=== PATIENT | female | born 1955 | race Caucasian/White ===

== ENCOUNTER → 2023-12-18 11:43 | Outpatient (REF) | payer OTHER, SELFPAY ==
[2023-12-18 12:59] LABS: % Basophils 0.4 % (0-2); % Eosinophils 1.9 % (0-6); % Immature Granulocytes 0.4 % (0-0.5); % Lymphocytes 16.7 % (20.5-51.1); % Monocytes 7.5 % (1.7-9.3); % Neutrophils 73.1 % (42.2-75.2); Absolute Eosinophils 0.2 10^3/uL (0-0.7); Absolute Lymphocytes 1.6 10^3/uL (1.2-3.4); Absolute Monocytes 0.7 10^3/uL (0.1-0.6); Absolute Neutrophils 7.2 10^3/uL (1.4-6.5); Hematocrit 40.8 % (37.0-47.0); Hemoglobin 14.1 g/dL (12.0-16.0); Mean Corp Hgb Conc. 34.6 g/dL (33.0-37.0); Mean Corpuscular Hgb 31.2 pg (27.0-31.0); Mean Corpuscular Volume 90.3 fL (81.0-99.0); Mean Platelet Volume 9.8 fL (7.4-10.4); Nucleated Red Blood Cells % 0 %; Platelet Count 350 10^3/uL (130-400); Red Blood Cell Count 4.52 10^6/uL (4.20-5.40); Red Cell Dist. Width 14.3 % (11.5-14.5); White Blood Cell Count 9.8 10^3/uL (4.8-10.8)
[2023-12-18 13:17] LABS: ALT (SGPT) 16 U/L (0-35); AST (SGOT) 27 U/L (14-36); Albumin 3.7 g/dl (3.5-5.0); Alkaline Phosphatase 114 U/L (38-126); Blood Urea Nitrogen 11 mg/dl (7-17); Calcium 9.3 mg/dl (8.4-10.2); Carbon Dioxide 22 mmol/L (22-30); Chloride 107 mmol/L (98-107); Glucose 108 mg/dl (70-99); Potassium 4.1 mmol/L (3.5-5.1); Sodium 135 mmol/L (135-145); Total Bilirubin 0.6 mg/dl (0.2-1.3); Total Protein 7.2 g/dl (6.3-8.2); eGFR > 60.00
[2023-12-18 13:53] LABS: Erythrocyte Sed Rate 19 mm/hour (0-20)
== END ==
LOC: REG 11:43
PROVIDERS: ATTENDING PHYSICIAN Internal Medicine Rheumatology; FAMILY PHYSICIAN Internal Medicine
DX: M05.79 Rheumatoid arthritis with rheumatoid factor of multiple sites without organ or systems involvement (principal); M15.0 Primary generalized (osteo)arthritis; R53.82 Chronic fatigue, unspecified; Z79.899 Other long term (current) drug therapy
CPT/HCPCS: 36415; 80053; 85025; 85652; 86140

== ENCOUNTER → 2024-03-19 10:01 | Outpatient (REF) | payer OTHER, SELFPAY ==
[2024-03-19 11:04] LABS: % Basophils 0.4 % (0-2); % Eosinophils 2.3 % (0-6); % Immature Granulocytes 0.5 % (0-0.5); % Lymphocytes 18.9 % (20.5-51.1); % Monocytes 7.3 % (1.7-9.3); % Neutrophils 70.6 % (42.2-75.2); Absolute Eosinophils 0.2 10^3/uL (0-0.7); Absolute Immature Granulocytes 0.1 10^3/uL (0-0.05); Absolute Lymphocytes 1.9 10^3/uL (1.2-3.4); Absolute Monocytes 0.7 10^3/uL (0.1-0.6); Absolute Neutrophils 7.1 10^3/uL (1.4-6.5); Hematocrit 42.3 % (37.0-47.0); Hemoglobin 14.3 g/dL (12.0-16.0); Mean Corp Hgb Conc. 33.8 g/dL (33.0-37.0); Mean Corpuscular Hgb 30.6 pg (27.0-31.0); Mean Corpuscular Volume 90.6 fL (81.0-99.0); Mean Platelet Volume 10.7 fL (7.4-10.4); Nucleated Red Blood Cells % 0 %; Platelet Count 284 10^3/uL (130-400); Red Blood Cell Count 4.67 10^6/uL (4.20-5.40); Red Cell Dist. Width 14.4 % (11.5-14.5)
[2024-03-19 11:27] LABS: ALT (SGPT) 21 U/L (0-35); AST (SGOT) 25 U/L (14-36); Albumin 3.8 g/dl (3.5-5.0); Alkaline Phosphatase 111 U/L (38-126); Blood Urea Nitrogen 12 mg/dl (7-17); Calcium 9.3 mg/dl (8.4-10.2); Carbon Dioxide 24 mmol/L (22-30); Chloride 105 mmol/L (98-107); Glucose 107 mg/dl (70-99); Potassium 4.4 mmol/L (3.5-5.1); Sodium 139 mmol/L (135-145); Total Bilirubin 0.7 mg/dl (0.2-1.3); Total Protein 7.2 g/dl (6.3-8.2); eGFR > 60.00
[2024-03-19 11:39] LABS: Erythrocyte Sed Rate 32 mm/hour (0-20)
== END ==
LOC: REG 10:01
PROVIDERS: ATTENDING PHYSICIAN Internal Medicine Rheumatology; FAMILY PHYSICIAN Internal Medicine
DX: M05.79 Rheumatoid arthritis with rheumatoid factor of multiple sites without organ or systems involvement (principal); M15.0 Primary generalized (osteo)arthritis; R53.82 Chronic fatigue, unspecified; Z79.899 Other long term (current) drug therapy
CPT/HCPCS: 36415; 80053; 85025; 85652; 86140

== ENCOUNTER → 2024-07-08 10:37 | Outpatient (REF) | payer OTHER, SELFPAY ==
[2024-07-08 11:52] LABS: % Basophils 0.5 % (0-2); % Eosinophils 2.1 % (0-6); % Immature Granulocytes 0.6 % (0-0.5); % Lymphocytes 19.8 % (20.5-51.1); % Monocytes 9.4 % (1.7-9.3); % Neutrophils 67.6 % (42.2-75.2); Absolute Basophils 0.1 10^3/uL (0-0.2); Absolute Eosinophils 0.2 10^3/uL (0-0.7); Absolute Immature Granulocytes 0.1 10^3/uL (0-0.05); Absolute Monocytes 0.9 10^3/uL (0.1-0.6); Absolute Neutrophils 6.7 10^3/uL (1.4-6.5); Hematocrit 44.4 % (37.0-47.0); Hemoglobin 14.9 g/dL (12.0-16.0); Mean Corp Hgb Conc. 33.6 g/dL (33.0-37.0); Mean Corpuscular Hgb 31.4 pg (27.0-31.0); Mean Corpuscular Volume 93.7 fL (81.0-99.0); Nucleated Red Blood Cells % 0 %; Platelet Count 275 10^3/uL (130-400); Red Blood Cell Count 4.74 10^6/uL (4.20-5.40); Red Cell Dist. Width 14.5 % (11.5-14.5); White Blood Cell Count 9.9 10^3/uL (4.8-10.8)
[2024-07-08 12:07] LABS: Erythrocyte Sed Rate 24 mm/hour (0-20)
[2024-07-08 12:25] LABS: ALT (SGPT) 32 U/L (0-35); AST (SGOT) 23 U/L (14-36); Albumin 3.7 g/dl (3.5-5.0); Alkaline Phosphatase 123 U/L (38-126); Blood Urea Nitrogen 13 mg/dl (7-17); Carbon Dioxide 27 mmol/L (22-30); Chloride 103 mmol/L (98-107); Glucose 124 mg/dl (70-99); Potassium 4.5 mmol/L (3.5-5.1); Sodium 140 mmol/L (135-145); Total Bilirubin 0.8 mg/dl (0.2-1.3); Total Protein 6.8 g/dl (6.3-8.2); eGFR > 60.00
[2024-07-08 12:55] LABS: Hepatitis B Surface Antigen Negative (Negative)
[2024-07-08 12:58] LABS: Hepatitis B Core Ab, IgM Negative (Negative)
[2024-07-08 13:13] LABS: Hepatitis B Core Ab, Total Negative (Negative); Hepatitis B Surface Antibody Negative
[2024-07-08 13:40] LABS: Hepatitis C Antibody Negative (Negative)
[2024-07-10 05:11] LABS: Quantiferon TB Gold Plus Negative (Negative)
[2024-07-11 09:08] LABS: CCP Antibody IgG/IgA 156 Units (0-19)
== END ==
LOC: RAD 10:37
PROVIDERS: ATTENDING PHYSICIAN Physician Assistant
DX: K75.9 Inflammatory liver disease, unspecified (principal); M06.9 Rheumatoid arthritis, unspecified; M79.641 Pain in right hand; R76.9 Abnormal immunological finding in serum, unspecified; Z11.1 Encounter for screening for respiratory tuberculosis
CPT/HCPCS: 36415; 73100; 73120; 80053; 85025; 85652; 86140; 86200; 86430; 86480; 86704; 86705; 86706; 86803; 87340

== ENCOUNTER → 2024-11-30 11:58 | Outpatient (REF) | payer OTHER, SELFPAY ==
[2024-11-30 14:11] LABS: % Basophils 0.3 % (0-2); % Eosinophils 1.1 % (0-6); % Immature Granulocytes 0.5 % (0-0.5); % Lymphocytes 18.1 % (20.5-51.1); % Monocytes 12.2 % (1.7-9.3); % Neutrophils 67.8 % (42.2-75.2); Absolute Eosinophils 0.1 10^3/uL (0-0.7); Absolute Immature Granulocytes 0.1 10^3/uL (0-0.05); Absolute Monocytes 1.4 10^3/uL (0.1-0.6); Absolute Neutrophils 7.5 10^3/uL (1.4-6.5); Hematocrit 42.7 % (37.0-47.0); Hemoglobin 13.6 g/dL (12.0-16.0); Mean Corp Hgb Conc. 31.9 g/dL (33.0-37.0); Mean Corpuscular Volume 94.3 fL (81.0-99.0); Mean Platelet Volume 10.3 fL (7.4-10.4); Nucleated Red Blood Cells % 0 %; Platelet Count 374 10^3/uL (130-400); Red Blood Cell Count 4.53 10^6/uL (4.20-5.40); Red Cell Dist. Width 14.6 % (11.5-14.5); White Blood Cell Count 11.1 10^3/uL (4.8-10.8)
[2024-11-30 14:42] LABS: ALT (SGPT) 17 U/L (0-35); AST (SGOT) 22 U/L (14-36); Albumin 4.1 g/dl (3.5-5.0); Alkaline Phosphatase 105 U/L (38-126); Blood Urea Nitrogen 14 mg/dl (7-17); Carbon Dioxide 27 mmol/L (22-30); Chloride 99 mmol/L (98-107); Glucose 84 mg/dl (70-99); Potassium 5.1 mmol/L (3.5-5.1); Sodium 135 mmol/L (135-145); Total Bilirubin 1.1 mg/dl (0.2-1.3); Total Protein 7.4 g/dl (6.3-8.2); eGFR > 60.00
== END ==
LOC: REG 11:58
PROVIDERS: ATTENDING PHYSICIAN Internal Medicine Rheumatology; FAMILY PHYSICIAN Internal Medicine
DX: M06.9 Rheumatoid arthritis, unspecified (principal)
CPT/HCPCS: 36415; 80053; 85025; 86140

== ENCOUNTER → 2025-04-26 09:30 | Outpatient (REF) | payer OTHER, SELFPAY ==
[2025-04-26 10:51] LABS: Hematocrit 42.5 % (37.0-47.0); Hemoglobin 13.9 g/dL (12.0-16.0); Mean Corp Hgb Conc. 32.7 g/dL (33.0-37.0); Mean Corpuscular Volume 91.8 fL (81.0-99.0); Nucleated Red Blood Cells % 0 %; Platelet Count 372 10^3/uL (130-400); Red Cell Dist. Width 14.6 % (11.5-14.5)
[2025-04-26 11:15] LABS: ALT (SGPT) 18 U/L (0-35); AST (SGOT) 20 U/L (14-36); Albumin 3.7 g/dl (3.5-5.0); Alkaline Phosphatase 121 U/L (38-126); Blood Urea Nitrogen 10 mg/dl (7-17); Calcium 9.2 mg/dl (8.4-10.2); Carbon Dioxide 26 mmol/L (22-30); Chloride 105 mmol/L (98-107); Glucose 141 mg/dl (70-99); Potassium 4.3 mmol/L (3.5-5.1); Sodium 137 mmol/L (135-145); Total Protein 7.6 g/dl (6.3-8.2); eGFR > 60.00
[2025-04-26 13:14] LABS: C-Reactive Protein 56.10 mg/L (0.0-10.00)
== END ==
LOC: REG 09:30
PROVIDERS: ATTENDING PHYSICIAN Internal Medicine Rheumatology; FAMILY PHYSICIAN Internal Medicine
DX: M06.9 Rheumatoid arthritis, unspecified (principal); M79.641 Pain in right hand
CPT/HCPCS: 36415; 80053; 85025; 85652; 86140

== ENCOUNTER → 2025-09-04 13:00 | Outpatient (REF) | payer OTHER, SELFPAY ==
[2025-09-04 15:13] LABS: Hematocrit 33.7 % (37.0-47.0); Hemoglobin 10.3 g/dL (12.0-16.0); Mean Corp Hgb Conc. 30.6 g/dL (33.0-37.0); Mean Corpuscular Volume 90.8 fL (81.0-99.0); Nucleated Red Blood Cells % 0 %; Platelet Count 339 10^3/uL (130-400); Red Cell Dist. Width 15.4 % (11.5-14.5)
[2025-09-04 15:14] LABS: ALT (SGPT) 19 U/L (0-35); AST (SGOT) 26 U/L (14-36); Albumin 3.4 g/dl (3.5-5.0); Alkaline Phosphatase 207 U/L (38-126); Blood Urea Nitrogen 49 mg/dl (7-17); Calcium 8.7 mg/dl (8.4-10.2); Carbon Dioxide 28 mmol/L (22-30); Chloride 102 mmol/L (98-107); Glucose 107 mg/dl (70-99); Potassium 5.3 mmol/L (3.5-5.1); Sodium 136 mmol/L (135-145); Total Protein 7.9 g/dl (6.3-8.2); eGFR 12.29
[2025-09-04 15:20] LABS: C-Reactive Protein 83.40 mg/L (0.0-10.00)
[2025-09-07 01:58] LABS: CCP Antibody IgG/IgA >250 Units (0-19)
== END ==
LOC: REG 13:00
PROVIDERS: ATTENDING PHYSICIAN Internal Medicine Rheumatology; FAMILY PHYSICIAN Internal Medicine
DX: M06.9 Rheumatoid arthritis, unspecified (principal); M79.641 Pain in right hand; M79.642 Pain in left hand
CPT/HCPCS: 36415; 80053; 85025; 85652; 86140; 86200; 86430

== ENCOUNTER 2025-10-03 20:47 | Inpatient (IN) | payer OTHER, SELFPAY ==
[2025-10-03] VITALS (20 sets, daily range): BP systolic 104–221; BP diastolic 57–124
--- NOTE | 2025-10-03 19:15 | ED.GENMED ---
History of Present Illness
General
Chief Complaint: Abnormal Lab Value
Source: patient and significant other
Exam Limitations: none
Time Seen by Provider: 10/03/25 19:02
Nursing documentation reviewed up to this point in time: agreed with
History of Present Illness
History of Present Illness:
70 female outpatient referral for elevated BUN/creatinine white count chronic renal sufficiency not on meds never seen nephrology felt nauseous recently has been coughing a bit, legs feel swollen, had been on methotrexate previously for RA not
recently
Past History
Past History
ED Past Medical History: Other (RA hypertension)
Social History
Tobacco: Non-smoker
Alcohol: None
Drug: None
Personal: Single
Living: with family
Employment: Retired
Review of Systems
Review of Systems
All Other Systems: Not applicable
Constitutional: Reports fatigue
Respiratory: Reports no symptoms
Cardiac: Denies chest pain
ABD/GI: Reports nausea and vomiting
: Denies dysuria or incontinence
Skin: Reports no symptoms
Neurological: Reports weakness
Phy Exam
Physical Exam
Physical Exam:
Physical Exam
General: no apparent distress, not acutely ill
Neck: No jaundice
Heart: s1/s2 regular rate and rhythm, no murmur. equal radial pulses.
Lungs: Crackles
Abdomen: Nontender
Neuro: alert and oriented. no focal neurological deficits
Skin: no rash
Psychiatric: well kept. interactive and cooperative
Extremities: Edema lower EXTR
Course
Orders/Labs/Results
Orders:
Orders
10/03/25 18:40
Electrocardiogram (*1) Urgent
Reason for Study: Tachycardia
10/03/25 18:41
EKG- Treatment ONCE
10/03/25 19:13
CR Chest Portable - 1 View Urgent
Comment:
Reason For Exam: sob
Reason Study Needs to be Portable: Patient Unstable
10/03/25 19:14
CT Abd/pel Without Iv Or Oral Urgent
Comment:
Reason For Exam: christo
Bladder Scan- Treatment ONCE
HydrALAZINE [Apresoline] 5 mg IV NOW STA
10/03/25 19:22
Consult Nephrology [NEPHROLOGY CONSULT] Routine
Consulting Provider: Jed Masters
Was physician already notified: Yes
10/03/25 19:30
Nicardipine 40 mg/200 ml [Cardene] 40 mg in 200 ml IV PER PROTOCOL
Initial dose in mg/hr, then titrate:: 5
Titrate to keep:: SBP 120 - 140 mmHg
Titrate by mg/hr:: 2.5 mg/hr
Frequency of titrations (minutes):: 5-15 minutes
Maximum dose in mg/hr:: 15
Begin to taper infusion when:: Remained at goal for 2hrs
Taper by mg/hr:: 2.5 mg/hr
Frequency of taper (minutes) if patient maintains goal:: every 15-30 minutes
Taper to off?: Yes
If infusion off & no longer maintaining goal:: Contact Provider
10/03/25 20:21
Urinalysis Reflex To Culture Stat
Date Specimen was Collected: 10/03/25
Time Specimen was Collected: 20:19
Urine Microscopic Reflex Cult Stat
Urine Protein/Creat Ratio (Random) [Protein/Creat Ratio (Random)] Stat
Date Specimen was Collected: 10/03/25
Time Specimen was Collected: 20:19
Urine Sodium Stat
Date Specimen was Collected: 10/03/25
Time Specimen was Collected: 20:19
Urine Culture Stat
RAMIN Source: U
Specimen Description:
Date Specimen was Collected: 10/03/25
Time Specimen was Collected: 20:19
Abnormal Lab Results
10/03/25
20:21
Urine Ketones 1+ A
(Negative)
Ur Occult Blood Reflex 3+ A
(Negative)
Leukocyte Esterase Rfl 1+ A
(Negative)
Urine Albumin (Reflex) 2+ A
(Neg - Trace)
Vital Signs
Initial and Last Documented VS:
Initial Vital Signs
Temp Pulse Resp BP Pulse Ox
98.4 F 125 20 221/124 98
10/03/25 18:18 10/03/25 18:18 10/03/25 18:18 10/03/25 18:18 10/03/25 18:18
Last Documented Vital Signs
Temp Pulse Resp BP Pulse Ox
98.4 F 124 29 169/78 99
10/03/25 18:18 10/03/25 20:15 10/03/25 20:15 10/03/25 20:15 10/03/25 19:16
MDM/Problems Addressed
Differential Diagnosis Includes:
CHRISTO hypertensive urgency, obstructive uropathy
MDM/Problems Addressed:
Acute renal failure leukocytosis
Chronic conditions affecting care: HTN
Acute Exacerbation and/or Progression of Chronic Illness: HTN
*Radiology
Radiology exam reviewed: radiology read reviewed
*Pulse Oximetry
SaO2: 99
Oxygen Mode of Delivery: Room air
Patient hypoxic: no
*EKG
Interpreted by ED Provider?: Yes
Interpretation: normal
Comparison EKG: no comparison EKG present
Heart Rate: 78
Rate: normal
Rhythm: sinus
Ischemia: non-specific ST changes
*Virtualization Architect Interpretation
Rate: normal
Interpretation: normal
Heart Rate: 78
Rhythm: sinus
*Critical Care Note
Total Time (30-74mins, 75-104mins- exclusive of procedures): 30
Data Reviewed
Review of Other/Old Records Reveals: Labs
Source: patient
Update Note
Update Note:
7:30 PM labs vitals reviewed with nephrology recommend Cardene, starting with bladder scan and CT without contrast rule out obstruction chest x-ray
8:[address] report noted, message sent to nephrology, hospitalist, IR and urology
ED Attending Note
-
Portions of this chart may have been created with voice recognition software.� Occasional wrong word or��sound alike� substitutions may have occurred due to the inherent limitations of voice recognition software.
Discharge Plan
Departure
Patient Disposition: Admit
Date of Disposition: 10/03/25
Time of Disposition: 19:31
Admit to: ICU
Presentation/result/management discussed w/ accepting MD/DO: Hospitalist
Patient with high blood pressure during this ER visit?: Yes
Condition: Serious
Discharge Problem:
Hypertensive emergency, Acute kidney injury
Prescriptions:
No Action
mupirocin 1 APPLIC ointment
1 applic topical BID Qty: 1 0RF
Patient Comments:
started Thursday , last dose 11/05 0600
multivitamin 1 EACH tablet
1 ea PO DAILY PRN (Reason: when needed)
sennosides [senna] 1 TABLET tablet
2 tab PO BID 0RF
aspirin 325 MG tablet
325 mg PO DAILY Qty: 28 0RF
Rx Instructions:
Take daily x4 weeks for blood clot prevention.
docusate sodium 100 MG capsule
100 mg PO BID 0RF
acetaminophen 500 MG tablet
1,000 mg PO Q6H Qty: 60 0RF
Rx Instructions:
Do not exceed >4000 mg daily.
oxycodone 5 MG tablet
5 mg PO Q4HPRN PRN (Reason: moderate-severe pain) Qty: 30 0RF
Rx Instructions:
1 tab moderate pain or 2 if pain severe
Dx total joint replacement
ongoing therapy
celecoxib 200 MG capsule
200 mg PO DAILY Qty: 30 0RF
Rx Instructions:
Take with food.
Do not take within 2 hours of Aspirin.
famotidine 20 MG tablet
20 mg PO HS Qty: 30 0RF
baclofen 10 MG tablet
10 mg PO BIDPRN PRN (Reason: muscle spasms) Qty: 15 0RF
dyirvnqidoh-T5-Tbpxpadty serr 1 EACH tablet
1 ea PO DAILY Qty: 0 0RF
Rx Instructions:
Resume in 1 week.
Referrals:
Jennifer Mckeon MD [Family Provider, Internal Medicine]
Interventions
Interventions:
*General Assessment Last Done: 10/03/25 18:18
*Neglect/Abuse Screening Last Done: 10/03/25 18:18
*ED COVID-19 Vaccine History Last Done: 10/03/25 19:05
*ED Influenza Vaccine History Last Done: 10/03/25 19:05
[facility] Fall Risk Assessment Tool Last Done: 10/03/25 18:16
Discharge Date and Time
Print Language: INDIAN
[2025-10-03] MEDS: APRESOLINE 5 MG IV (19:19)
--- NOTE | 2025-10-03 19:26 | HPS.HSE ---
Family Physician
-
Family Physician: Jennifer Mckeon
Chief Complaint
-
Abnormal lab values
History of Present Illness
This is a 70-year-old female with past medical history significant for rheumatoid arthritis, close arthritis status post right total knee arthroplasty presents to the emergency department with abnormal labs from outpatient physician.
Patient reports history of rheumatoid arthritis for which she was previously on methotrexate. She states she took methotrexate for about 2 years and stopped approximately 3 months ago. She reports that over the last 2 weeks she has been having
increasing in nausea and intolerance of p.o. She reports that she does spit up strong whitish phlegm due to her nausea. She usually is able to keep most of her food down. She denies having any fevers or chills. She denies any diarrhea. She
denies any abdominal pain. She denies having any flank pain. She denies any urinary symptoms. She denies any changes in her urine output.
She was seen in the emergency department few weeks ago and had a acute rise in creatinine to 3.5 at that time. She was followed up by her PMD.
PMD did some workup which did reveal active inflammatory findings with elevated rheumatoid factor and cyclic Citrulline peptide. In previous years that she has had elevated JAIRON titers.
She was seen by PMD today and had labs which showed her creatinine had increased to 7.5 and a BUN of 88.
On arrival in the emergency department she was hypertensive to 200/93, pulse rate was 112 and oxygen saturation was 99% on room air. ECG shows a sinus tachycardia at rate of 117. Chest x-ray shows small left pleural effusions with adjacent
atelectasis, the cardiac silhouette is slightly enlarged consistent with small pericardial effusion. She has CT of the abdomen pelvis without IV contrast pending.
The rest of her labs showed WBC of 20.5, hemoglobin of 9.7 and a plate count of 408. Electrolytes was stable except for a bicarb of 15. ESR was elevated at 145.
Medical History
Past Medical History
Past Medical History: Reports Other
Additional Past Medical History:
Episodes that conjunctivitis
Right gastritis
Past Surgical History: Reports Orthopedic (Right total knee arthroplasty)
Social History
Tobacco: Non-smoker
Alcohol: None
Drug: None
Family History
Family History: Not pertinent
Allergies / Home Medications
Allergies reflects when Allergies were last updated in [facility].
Home Medications with original date entered in [facility]
Allergy/Medication List:
Allergies
Allergy/AdvReac Type Severity Reaction Status Date / Time
No Known Allergies Allergy Verified 10/03/25 18:22
Home Medications
No Meds [No Current Medications] 10/04/25
Review of Systems
-
Constitutional: Reports No Symptoms
EENT: Reports No Symptoms
Respiratory: Reports No Symptoms
Cardiac: Reports No Symptoms
Abdomen/GI: Reports Nausea
: Reports No Symptoms
Musculoskeletal: Reports No Symptoms
Skin: Reports No Symptoms
Neurological: Reports No Symptoms
Endocrine: Reports No Symptoms
Hematologic/Lymphatic: Reports No Symptoms
Psych: Reports No Symptoms
Physical Exam
Vital Signs
Vital Signs
Temp Pulse Resp BP Pulse Ox
98.4 F 112 27 205/93 99
10/03/25 18:18 10/03/25 18:45 10/03/25 18:45 10/03/25 18:36 10/03/25 19:16
Physical Exam
General: Well Developed, Well Nourished and No Apparent Distress
HEENT: NormoCephalic, Moist mucous membranes and Atraumatic
Respiratory: Clear
Cardiac: S1/S2 and Regular Rhythm; No Murmur or Rub
GI: Soft, Non Tender, Non Distended and Normal Bowel Sounds; No Organomegaly
Rectal: Deferred by Provider
Musculoskeletal: No Clubbing, No Cyanosis, Edema, Left Lower Extremity (Trace ankle) and Edema, Right Lower Extremity (Trace ankle)
Skin: No Rash
Neuro: AO x 3 and Nonfocal/grossly intact
Psych: Calm
Data Reviewed
-
Diagnostic Radiology: Image Personally Visualized and interpreted
CT Scan: Report Reviewed by me
Medical Tests (Nuc Med, Echo, EKG etc): Image Personally Visualized and interpreted
Lab Data: Labs Reviewed by me
Old Records: Reviewed
Impression/Plan
-
IMPRESSION:
70-year-old with history of rheumatoid arthritis who stopped taking methotrexate in May presents to the emergency department with abnormal outpatient labs showing acute renal failure with a creatinine of 7.5. She had a prior creatinine in
August that was 3.5 and had follow-up studies by her PMD at that time which showed elevated inflammatory markers. Rheumatoid arthritis as well as elevated ESR. She presents to the emergency department with nausea and poor p.o. tolerance. Workup
in the emergency department revealed uncontrolled hypertension, volume overload without shortness of breath or hypoxia. ECG was unremarkable. Labs showed a BUN of 83 and a creatinine of 7.5, electrolytes are okay and bicarb is slightly low at 15.
She has a white count of 20.5 and hemoglobin of 9.7 with a plate count of 408. CT reveals CVA bilateral hydronephrosis likely secondary to a soft tissue mass in the region of the lower uterine segment that appears to be directly invading into the
posterior wall of the urinary bladder likely obstruction of both distal ureters at the level of the ureterovesicular junction. Cervical or endometrial carcinoma will be a leading consideration.
PLAN:
Acute renal failure -likely on the basis of bilateral hydronephrosis secondary to soft tissue mass stemming from uterus or cervix concerning for endometrial cancer.
-Admit to ICU for blood pressure control and nicardipine
� N.p.o. for now
� Discussed with nephrology, will need acute decompression.
� Urology consultation
�Percutaneous nephrostomy tube recommended by urology
� IR consultation for PERC neph tube
� Given leukocytosis, obtaining urine studies and culture, blood cultures if febrile
-Will start empiric ceftriaxone for now given the leukocytosis after urine has been collected
Pelvic Mass on non-contrast CT concerning for endometrial/cervical ca
- television technician consult
- TVUS per television technician
DVT prophylaxis�heparin subcu
CODE STATUS�full code
[2025-10-03] MEDS: CARDENE 200 IV (19:40)
[2025-10-03 20:27] LABS: Urine Character Clear (Clear)
[2025-10-03 20:32] LABS: Urine Squamous Cell 16-20 /LPF (Few)
[2025-10-03 21:29] LABS: COVID-19 Antigen Negative (Negative)
[2025-10-03 22:31] LABS: Glucose - Point of Care 156 mg/dl (70-99)
--- NOTE | 2025-10-03 22:47 | PTCARENOTE ---
pt arrived from ED, staff settled pt, family at bedside, denies chest pain and SOB at this time, cardene gtt infusing per orders, call hyde in reach, report given to RN at this time
[2025-10-03] MEDS: TYLENOL 650 MG PO (23:13)
[2025-10-03] MEDS: SODIUM BICARBONATE 650 MG PO (23:13)
[2025-10-03] MEDS: HEPARIN 5000 UNITS SC (23:14)
[2025-10-03] MEDS: ROCEPHIN 1000 MG IV (23:58)
[2025-10-03] MEDS: STERILE WATER FOR INJECTION 10 ML IV (23:58)
[2025-10-04] VITALS (28 sets, daily range): BP systolic 90–168; BP diastolic 61–96; BMI 24.5
--- NOTE | 2025-10-04 00:11 | PTCARENOTE ---
admitted to icu [id number]- htn on Cardene gtt- gtt being tapered down. bp w/in parameters afebrile sinus 90's - voided urine-ax3- c/o rt upper chest pain that has been intermittent for 10 days- ekg done provider notified and read ekg. many questions
about plan of care all questions answered.
--- NOTE | 2025-10-04 00:46 | PTCARENOTE ---
toney gtt off- pt npo per orders
[2025-10-04 02:13] LABS: Hematocrit 26.0 % (37.0-47.0); Hemoglobin 8.7 g/dL (12.0-16.0); Mean Corp Hgb Conc. 33.5 g/dL (33.0-37.0); Mean Corpuscular Volume 85.2 fL (81.0-99.0); Platelet Count 342 10^3/uL (130-400); Red Cell Dist. Width 15.2 % (11.5-14.5)
[2025-10-04 02:22] LABS: INR 1.66; PT 19.8 Sec (11.4-14.6)
[2025-10-04 02:23] LABS: APTT 36.1 Sec (23.4-35.0)
[2025-10-04 02:33] LABS: Troponin I 0.031 ng/ml
[2025-10-04 02:48] LABS: D-Dimer 4.04 ug/mlFEU (0.00-0.50)
--- NOTE | 2025-10-04 02:50 | PTCARENOTE ---
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 she states that rubbing it helps- heating pad given with excellent relief- case discussed with photo printer= am labs drawn. pt remains on room air and bp
wnl off Cardene gtt. remains npo for am procedure
[2025-10-04 02:56] LABS: Blood Urea Nitrogen 89 mg/dl (7-17); Calcium 8.8 mg/dl (8.4-10.2); Carbon Dioxide 15 mmol/L (22-30); Chloride 107 mmol/L (98-107); Estimated Creatinine Clearance 7 ml/min; Glucose 108 mg/dl (70-99); Iron 37 ug/dl (37-170); Magnesium 1.6 mg/dl (1.6-2.3); Potassium 4.5 mmol/L (3.5-5.1); Sodium 135 mmol/L (135-145); Total Iron Binding Capacity 137 ug/dl (265-497); eGFR 6.11
[2025-10-04 03:12] LABS: Vitamin B12 617 pg/ml (239-931)
--- NOTE | 2025-10-04 03:15 | W.PN.UPDATE ---
Update Note
Progress Note Update
Patient complaining of�right-side�chest pain.�EKG showing no signs of ischemia. Labs sent, results�Troponin�is negative,�D Dimer�elevated�at�4.04.�Clinically: Blood pressure�is�stable.�Respiratory rate within normal limits on room air. The nurse
gave�the patient�a warm�compress,�and she�stated�that her right sided chest pain has improved.�
[2025-10-04] MEDS: TYLENOL 650 MG PO ×3 (06:17→21:19)
--- NOTE | 2025-10-04 07:10 | PTCARENOTE ---
Very pleasant. Holding warm compress to her midsternal section. C/O discomfort with coughing, repositioning, deep breathing. RA pulse ox laying semiflat 92% poor inspiratory effort. Breath sounds dim posteriorly. +2 L/E edema L>R. Good peripheral
pulses. +BSX4, reports fair appetite with resolution of nausea. Right ac protective catheter flushed and patent. She was informed of the plan of care regarding interventional radiology for the insertion of bilateral nephrostomy tubes. We reviewed
post procedural care. She reported she already brushed her teeth this morning. Safe environment maintained.
[2025-10-04] MEDS: HEPARIN 5000 UNITS SC ×3 (07:55→23:12)
[2025-10-04] MEDS: SODIUM BICARBONATE 650 MG PO ×3 (07:55→21:19)
--- NOTE | 2025-10-04 08:04 | W.PN.HOSP.TC ---
Today's Communication/Plan
-
Status post bilateral nephrostomy tube
Okay to downgrade to telemetry if blood pressure remains stable
Renal diet
INTERIOR DESIGNER consulted
Assessment / Plan
Assessment / Plan
Impression:
This is a 70-year-old female with a past medical history of rheumatoid arthritis and osteoarthritis status post right total knee arthroplasty who presented to the emergency department after abnormal outpatient labs. She reports a history of
rheumatoid arthritis previously managed with methotrexate for about two years, which she discontinued approximately three months ago. Over the past two weeks, she has experienced worsening nausea and poor oral intake, occasionally spitting up thick
whitish phlegm but generally able to keep most food down. She denies fever, chills, diarrhea, abdominal pain, flank pain, urinary symptoms, or changes in urine output. She was seen in the ED a few weeks ago for an acute rise in creatinine to 3.5 and
subsequently followed up with her primary physician, who noted elevated inflammatory markers, rheumatoid factor, cyclic citrulline peptide, and historically elevated JAIRON titers. Today, outpatient labs revealed a creatinine of 7.5 and BUN of 88,
prompting ED referral. On arrival, she was hypertensive to 200/93 with a pulse of 112 and oxygen saturation of 99% on room air. ECG showed sinus tachycardia at 117 bpm. Chest X-ray demonstrated a small left pleural effusion with adjacent atelectasis
and a mildly enlarged cardiac silhouette suggestive of a small pericardial effusion. CT abdomen/pelvis without IV contrast is pending. Additional labs revealed WBC 20.5, hemoglobin 9.7, platelets 408, stable electrolytes except for bicarbonate of
15, and an ESR of 145.
Admitted initially to the ICU, for nicardipine drip, IR consult for percutaneous nephrostomy tube, CHIEF WELLNESS OFFICER consulted for pelvis mass.
IR status post nephrostomy tube
Assessment/plan:
Acute Renal Failure
Likely secondary to bilateral hydronephrosis caused by soft tissue mass originating from uterus or cervix, concerning for endometrial cancer.
70-year-old with history of rheumatoid arthritis (off methotrexate since May) presented with abnormal outpatient labs: creatinine 7.5 (prior 3.5 in August), BUN 83, bicarb 15. Electrolytes otherwise stable.
Clinical presentation: nausea, poor oral intake, uncontrolled hypertension, volume overload without hypoxia. ECG unremarkable.
Labs: WBC 20.5, Hgb 9.7, Plt 408.
CT: Bilateral hydronephrosis likely due to soft tissue mass in lower uterine segment invading posterior bladder wall, obstructing distal ureters at ureterovesicular junction. Leading consideration: cervical or endometrial carcinoma.
Plan:
patient Admitted to ICU for BP control; started on nicardipine
Kept NPO for procedures and will start renal diet
Urology/nephrology consulted.
IR consulted S/P Percutaneous nephrostomy tube.
Leukocytosis, urine and blood cultures pending, continue Rocephin
Hypertensive urgency
Patient admitted to the ICU and started in Cardene drip.
Blood pressure improved
Downgrade to telemetry
Sepsis with acute organ dysfunction secondary to UTI.
Organ dysfunction in form of acute renal failure/coagulopathy.
Continue Rocephin, pending urine and blood cultures
Pelvic Mass (non-contrast CT concerning for endometrial/cervical cancer)
Gynecology consult
Transvaginal ultrasound pending
Chest pain.
Possible musculoskeletal.
Chest x-ray negative.
Negative troponin.
Relieved with warm compress.
Negative EKG for acute ischemic changes
Normocytic anemia.
Continue to monitor hemoglobin
Iron level 37, total iron-binding capacity 137, iron saturation 27
Vitamin B12 level 617
CODE STATUS: Full code
DVT prophylaxis: Heparin
Diet: NPO then renal
Disposition: Status post bilateral nephrostomy tube
Okay to downgrade to telemetry if blood pressure remains stable
Renal diet
INTERIOR DESIGNER consult
Total time spent on today's encounter was 74 minutes which included time spent in counseling the patient/family regarding diagnosis and treatment plan as listed above, goals of care, and symptom management. Case was discussed with nursing staff,
specialists, and care coordinators/case management. All labs and imaging personally reviewed by . Remainder the time spent in detailed review of previous records, lab data, imaging, and other medical provider documentation.
Part of this note was created using voice recognition system. Occasional wrong word or �sound alike� substitutions may have inadvertently occurred due to the inherent limitations of voice recognition software. If noted kindly bring it to my
attention for correction.
Anticipated Discharge: > 48 hours
Subjective/Interval History
-
Date of Service: October 04, 2025
Patient seen and examined at bedside, patient complaining of right lower sided muscular chest pain which improves with warm compress.
Objective Data
-
Labs:
Laboratory Results
10/04/25 10/04/25
01:44 01:45
WBC 15.7 H
Hgb 8.7 L
Hct 26.0 L
Plt Count 342
PT 19.8 H
INR 1.66
APTT 36.1 H
Sodium 135
Potassium 4.5
Chloride 107
Carbon Dioxide 15 L
BUN 89 H
Creatinine 6.8 H*
Glucose 108 H
Calcium 8.8
Vital Signs:
Vital Signs
Temp Pulse Resp BP Pulse Ox
98.0 F 98 38 138/71 93
10/04/25 03:09 10/04/25 06:00 10/04/25 06:00 10/04/25 06:00 10/04/25 06:00
I&O
10/03/25 10/04/25 10/05/25
06:59 06:59 06:59
Intake Total 120 / 120
Output Total 800 / 800
Balance -680 / -680
Physical Exam
-
General: Well Developed, Well Nourished, No Apparent Distress and Comfortable
HEENT: Normocephalic, Atraumatic, Moist Mucous Membranes, No Ptosis, PERRLA and Nose Appears Normal
Respiratory: Clear to Auscultation and Non Labored Respirations
Cardiac: Regular Rhythm, S1/S2 and Other (Tender right lower rib cage)
Breast: Deferred by me
GI: Soft, Nontender, Nondistended and Normal Bowel Sounds
Genito-urinary: No Costovertebral Tender
Musculoskeletal: No Clubbing, No Cyanosis and No Edema
Skin: Warm
Neuro: Awake, Alert, Oriented, AO x 3 and No Motor Deficits
Psych: Calm
Data Reviewed
-
Diagnostic Radiology: Image personally visualized and interpreted and Report Reviewed by me
CT Scan: Image personally visualized and interpreted and Report Reviewed by me
Ultrasound: Image personally visualized and interpreted and Report Reviewed by me
MRI: Image personally visualized and interpreted and Report Reviewed by me
Medical Tests (Nuc Med, Echo etc): Image personally visualized and interpreted and Report Reviewed by me
Labs: Labs Reviewed by me
Old Records: Reviewed
--- NOTE | 2025-10-04 10:08 | W.PN.URO.CBU ---
Today's Communication / Plan
-
irad f0r tubes
Assessment / Plan
-
bilateralurteral obstruction christo due to pelvic mass Suggest bilateral percutaneuous tubes then eval of pelvic mass after renal obstruction dissipates
Diagnosis
-
Date of Service: October 04, 2025
-
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
Post Op Day:
Subjective
-
tired
Objective
-
Vital Signs
Temp Pulse Resp BP Pulse Ox
98.0 F 92 26 143/67 93
10/04/25 03:09 10/04/25 09:00 10/04/25 09:00 10/04/25 09:00 10/04/25 09:00
Intake and Output
10/03/25 10/04/25 10/05/25
06:59 06:59 06:59
Intake Total 120 / 120 120 / 120
Output Total 800 / 800 250 / 250
Balance -680 / -680 -130 / -130
Intake:
Oral fluids 120 / 120 120 / 120
Output:
Urine, Voided 800 / 800 250 / 250
Laboratory Results
10/04/25 01:45
10/04/25 01:44
Review of Systems
-
: No Symptoms
Physical Exam
-
General - well developed, well nourished, no acute distress
Chest - clear bilaterally
Abdomen - soft, non-tender, positive bowel sounds, no CVAT, no incisional pain or distention
Genitalia - normal
Rectal - normal
Skin - warm & dry with no rash
Neuro - AOx3, no motor deficits
Extremities - no clubbing, no cyanosis, no edema
Counseling
-
irad
Care Review
Data Reviewed
Discussed with: Hospitalist and KONSTANTIN
CT Scan: Image Pers Reviewed
--- NOTE | 2025-10-04 10:10 | PTCARENOTE ---
Pt transported to [facility] via stretcher & transport monitored. She had to lift her left leg up in order to get OOB. Her gait was steady using her straight cane. While transferring to the stretcher she was dribbling urine. She had no control. She was
provided a partial CHG bath and new non-slip socks provided. Handed off to Lachelle in [facility]. Ticket to ride given to Lachelle in [facility].
--- NOTE | 2025-10-04 12:25 | PTCARENOTE ---
Received pt from ultrasound & [facility] via stretcher. She is awake and alert. C/O thirst. Mild sternal pain associated with deep breathing and coughing. Her significant other is at the bedside asking multiple questions. I informed him that we were still
collecting information regarding the mass in her pelvic region and these are not questions that I can answer. Yesenia Hunt was notified that the family would like to speak with him at his earliest convenience.
--- NOTE | 2025-10-04 12:38 | CM ---
I.A: By KEITH Simmons. Patient was at a test.
I.A: Patient lives with Sig Other in a Condo with [address]. DME: cane, No VN/PT, No STR, No Outpatient.
PCP: Dr. Jennifer Mckeon
Pharm: [facility]
Patient has transport when ready. PLAN: Anticipate Home No Needs, will watch.
[2025-10-04 13:36] LABS: Urine Character Cloudy (Clear)
[2025-10-04 13:44] LABS: Urine Red Blood Cell >100 /HPF (0-2); Urine Squamous Cell 0-2 /LPF (Few)
[2025-10-04 14:11] LABS: Rheumatoid Agglutinin Positive (<10 IU)
[2025-10-04 14:13] LABS: Rheumatoid Agg. Semi-quant 2048 IU
[2025-10-04 15:02] LABS: Blood Urea Nitrogen 82 mg/dl (7-17); Calcium 8.9 mg/dl (8.4-10.2); Carbon Dioxide 15 mmol/L (22-30); Chloride 108 mmol/L (98-107); Estimated Creatinine Clearance 8 ml/min; Glucose 94 mg/dl (70-99); Potassium 4.5 mmol/L (3.5-5.1); Sodium 137 mmol/L (135-145); eGFR 6.70
--- NOTE | 2025-10-04 15:06 | W.CON.NEPH ---
Consultation
-
Date/Time Consultation Requested: 10/03/251921
Date/Time Consultation Performed: 10/04/25 1430
Requesting Provider: Terence Amin
Performing Provider: Yael Galvez
Reason for Consultation: NINO
Medical History
-
Chief Complaint: abnormal labs
History of Present Illness:
70-year-old female with past medical history significant for rheumatoid arthritis, osteo arthritis status post right total knee arthroplasty presents to the emergency department with abnormal labs from outpatient physician.
Patient reports history of rheumatoid arthritis for which she was previously on methotrexate. She states she took methotrexate for about 2 years and stopped approximately 3 months ago. She reports that over the last 2 weeks she has been having
increasing in nausea and intolerance of p.o. She denies having any fevers or chills. She denies any diarrhea. She denies any abdominal pain. She denies having any flank pain. no dysuria however noticed frequency of urination. No hematuria
and denies any changes in her urine output.
She was seen in the emergency department few weeks ago and had a acute rise in creatinine to 3.5 at that time, also running increased blood pressures. She was followed up by her PMD whom she saw yesterday and labs noted with a creatinine of 7.5
and BUN 88 hence was recommended come to the hospital.
On arrival in the emergency department she was hypertensive to 200/93, pulse rate was 112, Chest x-ray shows small left pleural effusions with adjacent atelectasis, the cardiac silhouette is slightly enlarged consistent with small pericardial
effusion. She has CT of the abdomen pelvis without IV contrast show soft tissue mass in the region of lower uterine segment/ cervix that appears directly invading into posterior wall of the urinary bladder likely obstructing both distal ureter at
the UV junction. cervical or endometrial carcinoma his possible consideration. moderate to severe bilateral hydroureteronephrosis.
she saw Urology today and underwent bilateral percutaneous nephrostomy tube placement by interventional radiology.
labs repeated this afternoon shows improving creatinine at 6.3, bicarb of 15.
she feels well probably still mild uupper abdomen discomfort due to nausea. her blood pressures have improved but remains elevated.
nephrology was asked to evaluate NINO.
Past Medical History
Episodes that conjunctivitis
Right gastritis
Osteoarthritis
Past Surgical History: Other (Right total knee arthroplasty)
Social History
Tobacco: Non-Smoker
Alcohol: None
Drug: None
Living: With Family
Family History
no kidney disease
Family History: Not Pertinent
Allergies / Home Medications
Allergy/AdvReac Type Severity Reaction Status Date / Time
No Known Allergies Allergy Verified 10/03/25 18:22
�Medication �Instructions �Recorded �Confirmed �Type
No Meds [No Current Medications] 10/04/25 10/04/25 History
Review of Systems
-
All other systems: Negative unless noted
Physical Exam
Vital Signs
Vital Signs
Temp Pulse Resp BP Pulse Ox
97.9 F 97 31 150/81 97
10/04/25 13:08 10/04/25 14:00 10/04/25 14:00 10/04/25 14:00 10/04/25 14:00
Lab Results
WBC 15.7 10^3/uL (4.8-10.8) H 10/04/25 01:45
RBC 3.05 10^6/uL (4.20-5.40) L 10/04/25 01:45
Hgb 8.7 g/dL (12.0-16.0) L 10/04/25 01:45
Hct 26.0 % (37.0-47.0) L 10/04/25 01:45
Plt Count 342 10^3/uL (130-400) 10/04/25 01:45
Sodium 137 mmol/L (135-145) 10/04/25 13:34
Potassium 4.5 mmol/L (3.5-5.1) 10/04/25 13:34
Chloride 108 mmol/L (98-107) H 10/04/25 13:34
Carbon Dioxide 15 mmol/L (22-30) L 10/04/25 13:34
BUN 82 mg/dl (7-17) H 10/04/25 13:34
Creatinine 6.3 mg/dL (0.6-1.0) H* 10/04/25 13:34
eGFR 6.70 10/04/25 13:34
Glucose 94 mg/dl (70-99) 10/04/25 13:34
Calcium 8.9 mg/dl (8.4-10.2) 10/04/25 13:34
Ohk-Y-Ydrgbmmjmgd Pept 7390 pg/ml 10/04/25 01:45
Physical Exam
General: Awake, Alert, Oriented, AOx3, No Distress and Nontoxic
HEENT: EOMI, Anicteric, Conjunctivae Clear, Ear/Nose Intact, Facial Symmetry and No JVD
Respiratory: Clear, Normal Excursion and Nonlabored Respirations
Cardiac: S1/S2 and Regular Rate/Rhythm
Breast: Deferred by me
Abdomen: Soft, Nontender and Nondistended
Genito-urinary: Bloody Urine
Musculoskeletal: No Cyanosis and No Edema
Skin: No Rash
Neuro: Nonfocal/Grossly Intact
Psych: Mood/afflect pleasant, Insight/judgement good and Appropriate
Data Reviewed
-
Radiology: Report Reviewed by me
Labs: Labs Reviewed by me, Discussed with Physician, Discussed with Patient and Discussed with Family
Assessment/Plan
-
IMP:
Acute Renal Failure
bilateral hydronephrosis caused by soft tissue mass originating from uterus or cervix, concerning for endometrial cancer.
s/p bilt PCN 10/04
Leukocytosis
Hypertensive urgency
mild gap metabolic acidosis
Sepsis with acute organ dysfunction secondary to UTI.
Pelvic Mass (non-contrast CT concerning for endometrial/cervical cancer)
Chest pain.
Normocytic anemia
arthritis
PLan:
A/w NINO and found to have bilat hydro with pelvic mass suspect cervial or endometrial cancer
cr improving to 6.3, s/p bilat PCN today
will trial IVF with bocarb for met acidosis
ok to cont po bicarb meantime too
BPs are labile, monitor
follow h/h
expect to see more improvement of cr however not sure if will return baseline 0.6
await traveling auditor input
follow h/h
on abx for suspected UTI, pending cx
d/w primary
d/w pt and family
--- NOTE | 2025-10-04 15:51 | PTCARENOTE ---
Report called to KATELYN Harrison. Patient transferred to room 430 via WC. All belongings brought with pt. at bedside, updated.
[2025-10-04] MEDS: SODIUM BICARBONATE 1075 MEQ IV (17:05)
--- NOTE | 2025-10-04 18:28 | CON.MD ---
Consultation - Medical
-
70 yo female with PMH rheumatoid arthritis and osteoarthritis presented to ER with persistent nausea/poor PO intake and found to have cervical/uterine mass on CT during workup as well as obstructing hydronephrosis. Had percurtaneous
bilateral nephrostomy tubes placed today by IRad. System Administration Advisor consult requested due to pelvic mass.
Pt reports had episode fo vaginal spotting a few months ago, not heavy. Has not seen DEPUTY DIRECTOR doctor nor had a pap smear in many years. Denies any significant upholstery department supervisor hx.
PMH: rheumatoid arthritis, osteoarthritis
PSH: right knee replacement
NKDA
Meds:recently stopped methotrexate a few wks ago. Denies other medications.
SocHx: single, Negative Tobacco, ETOH, recreational drug use
FamHx:mother from colon cancer age 68. Father in his 90s.Denies family hx of upholstery department supervisor cancers.
ROS: denies CP, SOB, fever, chills, abdominal pain, back pain, dizziness/lightheadedness. + vaginal spotting + nausea + decreased appetite
PE:
General: well-appearing female, no acute distress
Cor: regular rate
Pulm: no increased work of breathing
Abd: soft, NDNT no guarding, rebound, rigidity
Vulva: no gross lesions
Speculum exam: cervix with visible irregular tumor/mass, palpable friable and bled lightly after collecting pap.
Barrel type cervix, bulky, approx 5 cm, with no free space between parametrium and pelvic wall. Firm mass felt in all fornices.
Uterus approx 7-8cm size,
No adnexal fullness appreciated.
Rectal digital exam: no rectal mass palpated. Firm mass felt on posterior cervix/uterus on rectal exam.
Extremities: no calf pain or tenderness.
Imaging:
Impression:
1. Cervical mass visible on exam. Suspected cervical malignancy. Pap collected.
2. Imaging demonstrating solid mass arising from anterior lower uterine segment, suspicious for neoplasm. Uterine and cervical malignancies in differential dx.
3. Postmenopausal bleeding and thickened endometrial lining on TVUS 6.5mm.
4. bilateral hydronephrosis felt likely related to soft tissue mass in lower uterine segment invading posterior bladder wall, obstructing distal ureters at UVJ.
-S/P bilateral nephrostomy tubes.
6. Acute renal failure secondary to ureteral obstruction
-creatinine improving
7 Hypertension on admit -s/p nicardipine drip.
PLAN:
Discussed imaging and exam findings and concern that there is cervical malignancy. Not optimal for bedside biopsy at this time but pap was collected.
She will need to have followup with upholstery department supervisor oncologist for additional evaluation and management. Pt and partner prefer to avoid going into the city. They are agreeable to going to [facility]. I discussed that there may be
recommendation for transfer vs outpatient follow up depending on her other medical issues and severity. I did speak with Dr. Donnell Kim (System Administration Advisor Onc [place]) and reviewed hx and findings. If patient can be stabilized and able to go home in next
few days, can have outpt followup. If felt she needs to in hospital for several days, she can be transferred to their care. I reviewed findings and also discussed her case with Dr. Ernestina Patterson, hospitalist who is the attending physician. The
patient's partner did not want her to be transferred today. I have not been back up to speak to patient or partner regarding discussion with upholstery department supervisor onc due to me having labor patient close to delivering now.
Gynecology Oncology office # [phone].
Time spent including chart, record review, face to face time counseling/exam and documentation on day of visit plus discussion of care with Primary service and upholstery department supervisor oncology 75 minutes.
Consultation
-
Date/Time Consultation Requested: 10/04/25 07:00
Date/Time Consultation Performed: 10/04/25 6:00pm
Requesting Provider: Dr. Patterson
Performing Provider: Genia Downey DO
Reason for Consultation: cervical /uterine mass
--- NOTE | 2025-10-04 20:41 | W.PN.UPDATE ---
Update Note
Progress Note Update
I spoke with Barbara and reviewed my conversation with spanish literature professor onc that outpatient follow up is reasonable if going home soon, otherwise transfer is also an option if anticipating longer hospital stay for other medical issues.
[2025-10-04] MEDS: STERILE WATER FOR INJECTION 10 ML IV (23:12)
[2025-10-04] MEDS: ROCEPHIN 1000 MG IV (23:12)
[2025-10-05 03:05] VITALS: BP 149/88
--- NOTE | 2025-10-05 06:41 | PTCARENOTE ---
Pt had 1 episode of 12 beat VT. Pt was alert and oriented w/o complaint. OIL SPREADER OPERATOR alerted. EKG taken. No change to plan of care. Will continue to monitor.
[2025-10-05 07:12] LABS: Hematocrit 26.9 % (37.0-47.0); Hemoglobin 9.0 g/dL (12.0-16.0); Mean Corp Hgb Conc. 33.5 g/dL (33.0-37.0); Mean Corpuscular Volume 86.5 fL (81.0-99.0); Platelet Count 384 10^3/uL (130-400); Red Cell Dist. Width 15.7 % (11.5-14.5)
[2025-10-05 07:20] VITALS: BP 170/80
[2025-10-05 07:55] LABS: Blood Urea Nitrogen 67 mg/dl (7-17); Calcium 8.1 mg/dl (8.4-10.2); Carbon Dioxide 19 mmol/L (22-30); Chloride 108 mmol/L (98-107); Estimated Creatinine Clearance 12 ml/min; Glucose 112 mg/dl (70-99); Magnesium 1.3 mg/dl (1.6-2.3); Potassium 3.8 mmol/L (3.5-5.1); Sodium 138 mmol/L (135-145); eGFR 10.59
[2025-10-05] MEDS: SODIUM BICARBONATE 650 MG PO ×3 (08:19→21:15)
[2025-10-05] MEDS: HEPARIN 5000 UNITS SC ×3 (08:20→23:09)
[2025-10-05] MEDS: TOPROL XL 25 MG PO (10:48)
[2025-10-05] MEDS: TYLENOL 650 MG PO (10:48)
[2025-10-05] MEDS: MAGNESIUM SULFATE 50 IV (10:49)
[2025-10-05 11:00] VITALS: BP 170/86
--- NOTE | 2025-10-05 13:30 | W.PN.HOSP.TC ---
Today's Communication/Plan
-
Status post bilateral nephrostomy tube
Start Toprol-XL
Eventually transferred to [facility] once accepted by gynecology/oncology
Assessment / Plan
Assessment / Plan
Impression:
This is a 70-year-old female with a past medical history of rheumatoid arthritis and osteoarthritis status post right total knee arthroplasty who presented to the emergency department after abnormal outpatient labs. She reports a history of
rheumatoid arthritis previously managed with methotrexate for about two years, which she discontinued approximately three months ago. Over the past two weeks, she has experienced worsening nausea and poor oral intake, occasionally spitting up thick
whitish phlegm but generally able to keep most food down. She denies fever, chills, diarrhea, abdominal pain, flank pain, urinary symptoms, or changes in urine output. She was seen in the ED a few weeks ago for an acute rise in creatinine to 3.5 and
subsequently followed up with her primary physician, who noted elevated inflammatory markers, rheumatoid factor, cyclic citrulline peptide, and historically elevated JAIRON titers. Today, outpatient labs revealed a creatinine of 7.5 and BUN of 88,
prompting ED referral. On arrival, she was hypertensive to 200/93 with a pulse of 112 and oxygen saturation of 99% on room air. ECG showed sinus tachycardia at 117 bpm. Chest X-ray demonstrated a small left pleural effusion with adjacent atelectasis
and a mildly enlarged cardiac silhouette suggestive of a small pericardial effusion. CT abdomen/pelvis without IV contrast is pending. Additional labs revealed WBC 20.5, hemoglobin 9.7, platelets 408, stable electrolytes except for bicarbonate of
15, and an ESR of 145.
Admitted initially to the ICU, for nicardipine drip, IR consult for percutaneous nephrostomy tube, ACCOUNT MANAGER RELIEF consulted for pelvis mass.
IR status post nephrostomy tube
Assessment/plan:
Acute Renal Failure
Likely secondary to bilateral hydronephrosis caused by soft tissue mass originating from uterus or cervix, concerning for endometrial cancer.
70-year-old with history of rheumatoid arthritis (off methotrexate since May) presented with abnormal outpatient labs: creatinine 7.5 (prior 3.5 in August), BUN 83, bicarb 15. Electrolytes otherwise stable.
Clinical presentation: nausea, poor oral intake, uncontrolled hypertension, volume overload without hypoxia. ECG unremarkable.
Labs: WBC 20.5, Hgb 9.7, Plt 408.
CT: Bilateral hydronephrosis likely due to soft tissue mass in lower uterine segment invading posterior bladder wall, obstructing distal ureters at ureterovesicular junction. Leading consideration: cervical or endometrial carcinoma.
Plan:
patient Admitted to ICU for BP control; started on nicardipine
Kept NPO for procedures and will start renal diet
Urology/nephrology consulted.
IR consulted S/P Percutaneous nephrostomy tube.
Leukocytosis, urine and blood cultures pending, continue Rocephin
Hypertensive urgency
Patient admitted to the ICU and started in Cardene drip.
Blood pressure improved
Downgrade to telemetry
Started Toprol-XL
Nonsustained V. tach.
Keep potassium above 4 and magnesium of 2
Cardiology consulted.
Started on low-dose Toprol XL
Sepsis with acute organ dysfunction secondary to UTI.
Organ dysfunction in form of acute renal failure/coagulopathy.
Continue Rocephin, pending urine and blood cultures
Pelvic Mass (non-contrast CT concerning for endometrial/cervical cancer)
Gynecology consulted
Transvaginal ultrasound shows Solid heterogeneous mass arising from the anterior lower uterine segment measures 3.1 x 3.5 x 3.2 cm, suspicious for endometrial neoplasm.
Cartilage recommending gynecology/oncology consult which is available at [facility].
Discussed with patient and significant other and they are agreeable for transfer to [facility] once bed available.
Chest pain.
Possible musculoskeletal.
Chest x-ray negative.
Negative troponin.
Relieved with warm compress.
Negative EKG for acute ischemic changes
Normocytic anemia.
Continue to monitor hemoglobin
Iron level 37, total iron-binding capacity 137, iron saturation 27
Vitamin B12 level 617
CODE STATUS: Full code
DVT prophylaxis: Heparin
Diet: Renal diet
Communication: Discussed multiple times with significant other Tony Huizar at bedside and on the phone.
Disposition: Status post bilateral nephrostomy tube
Start Toprol-XL
Eventually transferred to [facility] once accepted by gynecology/oncology
Total time spent on today's encounter was 55 minutes which included time spent in counseling the patient/family regarding diagnosis and treatment plan as listed above, goals of care, and symptom management. Case was discussed with nursing staff,
specialists, and care coordinators/case management. All labs and imaging personally reviewed by me. Remainder the time spent in detailed review of previous records, lab data, imaging, and other medical provider documentation.
Part of this note was created using voice recognition system. Occasional wrong word or �sound alike� substitutions may have inadvertently occurred due to the inherent limitations of voice recognition software. If noted kindly bring it to my
attention for correction.
Anticipated Discharge: > 48 hours
Subjective/Interval History
-
Date of Service: October 05, 2025
Patient seen and examined at bedside, improved right lower chest pain had nonsustained V. tach overnight, cardiology consulted..
Objective Data
-
Labs:
Laboratory Results
10/05/25
06:39
WBC 16.7 H
Hgb 9.0 L
Hct 26.9 L
Plt Count 384
Sodium 138
Potassium 3.8
Chloride 108 H
Carbon Dioxide 19 L
BUN 67 H
Creatinine 4.3 H*
Glucose 112 H
Calcium 8.1 L
Vital Signs:
Vital Signs
Temp Pulse Resp BP Pulse Ox
98.5 F 103 18 170/86 97
10/05/25 11:00 10/05/25 11:00 10/05/25 11:00 10/05/25 11:00 10/05/25 11:00
I&O
10/04/25 10/05/25 10/06/25
06:59 06:59 06:59
Intake Total 120 / 120 510 / 510 480 / 480
Output Total 800 / 800 1325 / 1325 500 / 500
Balance -680 / -680 -815 / -815 -20 / -20
Physical Exam
-
General: Well Developed, Well Nourished, No Apparent Distress and Comfortable
HEENT: Normocephalic, Atraumatic, Moist Mucous Membranes, No Ptosis, PERRLA and Nose Appears Normal
Respiratory: Clear to Auscultation and Non Labored Respirations
Cardiac: Regular Rhythm, S1/S2 and Other (Tender right lower rib cage)
Breast: Deferred by me
GI: Soft, Nontender, Nondistended and Normal Bowel Sounds
Genito-urinary: No Costovertebral Tender
Musculoskeletal: No Clubbing, No Cyanosis and No Edema
Skin: Warm
Neuro: Awake, Alert, Oriented, AO x 3 and No Motor Deficits
Psych: Calm
--- NOTE | 2025-10-05 13:40 | W.PN.NEPH.PH ---
Today's Communication / Plan
-
AM labs
Assessment/Plan
-
IMP:
Acute Renal Failure
bilateral hydronephrosis caused by soft tissue mass originating from uterus or cervix, concerning for endometrial cancer.
s/p bilt PCN 10/04
Leukocytosis
Hypertensive urgency
mild gap metabolic acidosis
Sepsis with acute organ dysfunction secondary to UTI.
Pelvic Mass (non-contrast CT concerning for endometrial/cervical cancer)
Chest pain.
Normocytic anemia
arthritis
PLan:
A/w NINO and found to have bilat hydro with pelvic mass suspect cervial or endometrial cancer
s/p bilat PCN with good output
P.o. bicarb
Creatinine better
AM labs
-
-
Date of Service: October 05, 2025
CC / HPI / ROS
-
Chief Complaint:
Acute kidney
History of Present Illness:
NINO secondary to obstructive uropathy status post stent
Review of Systems:
No chest pain or shortness of breath
Labs
-
Labs:
WBC 16.7 10^3/uL (4.8-10.8) H 10/05/25 06:39
RBC 3.11 10^6/uL (4.20-5.40) L 10/05/25 06:39
Hgb 9.0 g/dL (12.0-16.0) L 10/05/25 06:39
Hct 26.9 % (37.0-47.0) L 10/05/25 06:39
Plt Count 384 10^3/uL (130-400) 10/05/25 06:39
eGFR 10.59 10/05/25 06:39
Phosphorus 4.6 mg/dl (2.5-4.5) H 10/05/25 06:39
Lat-X-Anufffzgpbo Pept 7390 pg/ml 10/04/25 01:45
Physical Exam
-
Vital Signs:
Vital Signs
Temp Pulse Resp BP Pulse Ox
98.5 F 103 18 170/86 97
10/05/25 11:00 10/05/25 11:00 10/05/25 11:00 10/05/25 11:00 10/05/25 11:00
Respiratory:: Bilateral: CTA
Lung Excursion:: Normal
Abdomen:: Soft
Bowel Sounds:: Normal
Extremity Edema:: None: Bilateral:
[2025-10-05 15:20] VITALS: BP 146/77
[2025-10-05 17:24] LABS: Blood Urea Nitrogen 60 mg/dl (7-17); Calcium 8.1 mg/dl (8.4-10.2); Carbon Dioxide 21 mmol/L (22-30); Chloride 104 mmol/L (98-107); Estimated Creatinine Clearance 15 ml/min; Glucose 138 mg/dl (70-99); Magnesium 1.9 mg/dl (1.6-2.3); Potassium 3.4 mmol/L (3.5-5.1); Sodium 134 mmol/L (135-145); eGFR 14.04
[2025-10-05 19:45] VITALS: BP 151/77
[2025-10-05] MEDS: ROCEPHIN 1000 MG IV (23:15)
[2025-10-05] MEDS: STERILE WATER FOR INJECTION 10 ML IV (23:15)
[2025-10-05 23:54] VITALS: BP 169/86
[2025-10-06 03:09] VITALS: BP 171/83
[2025-10-06 04:12] VITALS: BP 165/81
[2025-10-06 07:40] VITALS: BP 157/85
[2025-10-06] MEDS: HEPARIN 5000 UNITS SC ×2 (08:02→15:37)
[2025-10-06] MEDS: TOPROL XL 25 MG PO (08:04)
[2025-10-06] MEDS: SODIUM BICARBONATE 650 MG PO ×2 (08:04→15:37)
[2025-10-06] MEDS: TYLENOL 650 MG PO (08:30)
--- NOTE | 2025-10-06 08:54 | CON.CAR ---
Addendum entered and electronically signed by Robin Broderick MD 10/06/25 12:03:
I reviewed and agree with the note by FAZAL Orantes and it accurately reflects our care.
I saw and evaluated the patient, and I provided the substantive portion of the medical decision making. My assessment and plan is below:
70-year-old female with history of rheumatoid arthritis who presented with nausea and poor p.o. intake found to have creatinine 7.5 on outpatient labs due to bilateral hydronephrosis and a pelvic mass. She is now status post bilateral nephrostomy
tubes. Cardiology is consulted for NSVT. She reports that she and she has been here she has been having occasional chest 'spasms' which she thinks is due to coughing. Symptoms are overall improving. She denies palpitations, shortness of breath,
lightheadedness, or dizziness.
Physical exam: RRR, no murmurs, clear lungs, no lower extremity edema
Labs notable for creatinine 6.8 -> 2.7, magnesium 1.3 -> 1.9 -> 1.5
ECG: Sinus tachycardia, nonspecific ST�T wave changes
NSVT: Suspect due to electrolyte derangements in the setting of hypomagnesemia. Agree with magnesium repletion and would plan to discharge her on p.o. magnesium supplementation. We will check an echocardiogram to rule out structural heart disease.
She has already been started on metoprolol XL 25 mg daily which I agree with.
Hypertension: Required nicardipine drip on admission. Suspect undiagnosed hypertension. We will start amlodipine 5 mg daily in addition to metoprolol as above.
If her echocardiogram is unremarkable, cardiology will sign off. We are available for any further questions or concerns.
Original Note:
Consultation
Consultation Request
Date/Time Consultation Requested: 10/06/25 1040
Date/Time Consultation Performed: 10/06/25 0900
Requesting Provider: Dr. Patterson
Performing Provider: Mary DIEHL for Dr. Broderick
Reason for Consultation: NSVT
Medical History
-
Chief Complaint: abnormal labs
History of Present Illness:
70 y/o female with hx RA who has been having poor PO intake and nausea. She saw her PCP on 10/03/25 and due to abnormal lab values, HTN, and tachycardia, she was sent to ER. Acute renal failure was noted with creatinine 7.5. She was seen to have b/l
hydronephrosis related to pelvic mass, which is being investigated. Nephrostomy tubes placed. NINO improving. We are consulted for NSVT on environmental monitoring technician. Asymptomatic. Mag 1.3 and K+ 3.4. Given magnesium replacement and labs this AM pending. She is
having atypical chest discomfort, which is worse with coughing and sounds musculoskeletal. Troponin was unremarkable. EKG looks stable from previous on my review. She is in no distress at the time of my assessment. WBC elevated and patient being
treated for UTI with ABX. Also noted to have severe HTN on arrival, briefly requiring IV medications for management.
Past Medical History
Past Medical History: Other (as above)
Past Surgical History: Orthopedic
Social History
Tobacco: Non-Smoker
Family History
Family History: CAD (dad [place] age 90)
Allergies / Home Medications
Allergy/AdvReac Type Severity Reaction Status Date / Time
No Known Allergies Allergy Verified 10/03/25 18:22
�Medication �Instructions �Recorded �Confirmed �Type
No Meds [No Current Medications] 10/04/25 10/04/25 History
Review of Systems
-
History Source: Patient
All other systems: Negative unless noted
Respiratory: Cough
Abdomen/GI: Nausea and Other (poor PO intake)
Physical Exam
Vital Signs
Temp Pulse Resp BP Pulse Ox
98.7 F 89 20 157/85 96
10/06/25 03:09 10/06/25 08:04 10/06/25 03:09 10/06/25 08:04 10/06/25 03:09
Lab Results
Troponin I 0.031 ng/ml 10/04/25 01:45
Mns-U-Xutzgozxsgg Pept 7390 pg/ml 10/04/25 01:45
Physical Exam
General: Well Developed, Well Nourished and No Apparent Distress
HEENT: Normocephalic and Anicteric
Respiratory: Clear and Non Labored Respirations
Cardiac: Regular Rhythm
Musculoskeletal: No Edema
Skin: Warm and Dry
Neuro: AO x 3
Psych: Calm
Impression / Plan
-
Acute renal failure: improving
-b/l hydronephrosis caused by pelvic mass (being looked into by patent law specialist- poss transfer to [facility] per chart)
-b/l nephrostomy tubes placed
-nephro on the case
Severe HTN:
-improved
-noted on arrival and required Cardene temporarily
-still moderately elevated, denies any history of HTN, but looks like BP's generally elevated at OP PCP visits as well
-started on BB as below, but will likely need further antihypertensive medications
UTI, leukocytosis:
-on IV abx
NSVT:
-tele reviewed: 12-beat run, and two 4-beat runs. No symptoms. In setting of electrolyte abnormalities. Mag 1.3 -replaced. K+ 3.4 yesterday and pending this AM. Replace as indicated. Follow tele. Obtain echo. BB started. Denies any history of
syncope.
Chest discomfort: atypical
-worse with coughing, sounds musculoskeletal
-trop and EKG unremarkable
-checking echo
Elevated d-dimer (4.04):
-work-up and management per primary team
-denies any SOB
Anemia:
-per primary
RA: chronic
Data Reviewed
-
EKG: Tracing Personally Visualized and interpreted (SR with short OR 100 BPM- similar to previous EKG's overall)
Radiology: Report Reviewed by me (CXR 10/03/25: Small left pleural effusion with adjacent atelectasis. No pneumothorax. The cardiac silhouette is slightly enlarged. Chronic degenerative changes of the spine.)
CT Scan: Report Reviewed by me (Soft tissue mass in the region of the lower uterine segment/cervix that appears to directly invade into the posterior wall of the urinary bladder and likely obstructs both distal ureters at the level of the
ureterovesicular junctions.. see full report for more)
Medical Tests (Nuc Med, Echo etc): Other (echo ordered and pending)
Labs: Labs Reviewed by me
[2025-10-06 09:17] LABS: Hematocrit 28.3 % (37.0-47.0); Hemoglobin 9.2 g/dL (12.0-16.0); Mean Corp Hgb Conc. 32.5 g/dL (33.0-37.0); Mean Corpuscular Volume 87.1 fL (81.0-99.0); Platelet Count 336 10^3/uL (130-400); Red Cell Dist. Width 15.6 % (11.5-14.5)
[2025-10-06 09:37] LABS: Blood Urea Nitrogen 51 mg/dl (7-17); Calcium 8.0 mg/dl (8.4-10.2); Carbon Dioxide 23 mmol/L (22-30); Chloride 104 mmol/L (98-107); Estimated Creatinine Clearance 18 ml/min; Glucose 100 mg/dl (70-99); Magnesium 1.5 mg/dl (1.6-2.3); Potassium 3.4 mmol/L (3.5-5.1); Sodium 135 mmol/L (135-145); eGFR 18.52
[2025-10-06] MEDS: KCL 40 MEQ PO ×2 (10:10→13:58)
[2025-10-06] MEDS: MAGNESIUM SULFATE 100 IV (10:11)
[2025-10-06] MEDS: NORVASC 5 MG PO (11:43)
[2025-10-06 11:50] VITALS: BP 156/70
--- NOTE | 2025-10-06 13:29 | W.PN.NEPH.PH ---
Today's Communication / Plan
-
a.m. labs
Assessment/Plan
-
IMP:
Acute Renal Failure
bilateral hydronephrosis caused by soft tissue mass originating from uterus or cervix, concerning for endometrial cancer.
s/p bilt PCN 10/04
Leukocytosis
Hypertensive urgency
mild gap metabolic acidosis
Sepsis with acute organ dysfunction secondary to UTI.
Pelvic Mass (non-contrast CT concerning for endometrial/cervical cancer)
Chest pain.
Normocytic anemia
arthritis
PLan:
A/w NINO and found to have bilat hydro with pelvic mass suspect cervial or endometrial cancer
s/p bilat PCN with good output
P.o. bicarb
Creatinine better
AM labs
-
-
Date of Service: October 06, 2025
CC / HPI / ROS
-
Chief Complaint:
Acute kidney
History of Present Illness:
NINO secondary to obstructive uropathy status post stent
Review of Systems:
No chest pain or shortness of breath
Labs
-
Labs:
WBC 13.5 10^3/uL (4.8-10.8) H 10/06/25 08:04
RBC 3.25 10^6/uL (4.20-5.40) L 10/06/25 08:04
Hgb 9.2 g/dL (12.0-16.0) L 10/06/25 08:04
Hct 28.3 % (37.0-47.0) L 10/06/25 08:04
Plt Count 336 10^3/uL (130-400) 10/06/25 08:04
Sodium 135 mmol/L (135-145) 10/06/25 08:04
Potassium 3.4 mmol/L (3.5-5.1) L 10/06/25 08:04
Chloride 104 mmol/L (98-107) 10/06/25 08:04
Carbon Dioxide 23 mmol/L (22-30) 10/06/25 08:04
BUN 51 mg/dl (7-17) H 10/06/25 08:04
Creatinine 2.7 mg/dL (0.6-1.0) H 10/06/25 08:04
eGFR 18.52 10/06/25 08:04
Glucose 100 mg/dl (70-99) H 10/06/25 08:04
Calcium 8.0 mg/dl (8.4-10.2) L 10/06/25 08:04
Phosphorus 3.3 mg/dl (2.5-4.5) 10/06/25 08:04
Guj-F-Alzdwmpawjn Pept 7390 pg/ml 10/04/25 01:45
Physical Exam
-
Vital Signs:
Vital Signs
Temp Pulse Resp BP Pulse Ox
97.7 F 78 18 156/70 97
10/06/25 11:50 10/06/25 11:50 10/06/25 11:50 10/06/25 11:50 10/06/25 11:50
Respiratory:: Bilateral: CTA
Lung Excursion:: Normal
Abdomen:: Soft
Bowel Sounds:: Normal
Extremity Edema:: None: Bilateral:
--- NOTE | 2025-10-06 13:38 | CM ---
Addendum entered by Shilpa Darby 10/06/25 15:21:
KEITH called Jason ([phone] option 2) to notify of 5-530pm ambulance continuous pickling line pickler helper time.
Original Note:
Patient is for transfer to [facility] today.
[facility]
[address] [place] [address]
room 44 bed 1
Tel# for Report- [phone]
CM to call [phone] option 2 with pu time
Plan: transfer to [facility]
[2025-10-06 13:49] LABS: ANA, IgG Reflex to HEp-2 Detected (None Detected)
--- NOTE | 2025-10-06 14:07 | W.PN.HOSP.TC ---
Today's Communication/Plan
-
Transfer to [facility] under service of Dr. Donnell Kim.
Assessment / Plan
Assessment / Plan
Impression:
This is a 70-year-old female with a past medical history of rheumatoid arthritis and osteoarthritis status post right total knee arthroplasty who presented to the emergency department after abnormal outpatient labs. She reports a history of
rheumatoid arthritis previously managed with methotrexate for about two years, which she discontinued approximately three months ago. Over the past two weeks, she has experienced worsening nausea and poor oral intake, occasionally spitting up thick
whitish phlegm but generally able to keep most food down. She denies fever, chills, diarrhea, abdominal pain, flank pain, urinary symptoms, or changes in urine output. She was seen in the ED a few weeks ago for an acute rise in creatinine to 3.5 and
subsequently followed up with her primary physician, who noted elevated inflammatory markers, rheumatoid factor, cyclic citrulline peptide, and historically elevated JAIRON titers. Today, outpatient labs revealed a creatinine of 7.5 and BUN of 88,
prompting ED referral. On arrival, she was hypertensive to 200/93 with a pulse of 112 and oxygen saturation of 99% on room air. ECG showed sinus tachycardia at 117 bpm. Chest X-ray demonstrated a small left pleural effusion with adjacent atelectasis
and a mildly enlarged cardiac silhouette suggestive of a small pericardial effusion. CT abdomen/pelvis without IV contrast is pending. Additional labs revealed WBC 20.5, hemoglobin 9.7, platelets 408, stable electrolytes except for bicarbonate of
15, and an ESR of 145.
Admitted initially to the ICU, for nicardipine drip, IR consult for percutaneous nephrostomy tube, TAP OUT OPERATOR consulted for pelvis mass.
IR status post nephrostomy tube.
Seen by gynecology recommended transfer to [facility] to be seen by COMPRESSOR MECHANIC/oncology
Patient accepted by Dr. Donnell Kim at [facility].
Assessment/plan:
Acute Renal Failure
Likely secondary to bilateral hydronephrosis caused by soft tissue mass originating from uterus or cervix, concerning for endometrial cancer.
70-year-old with history of rheumatoid arthritis (off methotrexate since May) presented with abnormal outpatient labs: creatinine 7.5 (prior 3.5 in August), BUN 83, bicarb 15. Electrolytes otherwise stable.
Clinical presentation: nausea, poor oral intake, uncontrolled hypertension, volume overload without hypoxia. ECG unremarkable.
Labs: WBC 20.5, Hgb 9.7, Plt 408.
CT: Bilateral hydronephrosis likely due to soft tissue mass in lower uterine segment invading posterior bladder wall, obstructing distal ureters at ureterovesicular junction. Leading consideration: cervical or endometrial carcinoma.
Plan:
patient Admitted to ICU for BP control; started on nicardipine
Kept NPO for procedures and will start renal diet
Urology/nephrology consulted.
IR consulted S/P Percutaneous nephrostomy tube.
Leukocytosis, urine and blood cultures negative so far, discontinue Rocephin.
Hypertensive urgency
Patient admitted to the ICU and started in Cardene drip.
Blood pressure improved
Downgrade to telemetry
Started Toprol-XL
Nonsustained V. tach.
Keep potassium above 4 and magnesium of 2
Cardiology consulted.
Started on low-dose Toprol XL
Echo pending
Sepsis with acute organ dysfunction secondary to UTI.
Organ dysfunction in form of acute renal failure/coagulopathy.
Continue Rocephin, pending urine and blood cultures
Pelvic Mass (non-contrast CT concerning for endometrial/cervical cancer)
Gynecology consulted
Transvaginal ultrasound shows Solid heterogeneous mass arising from the anterior lower uterine segment measures 3.1 x 3.5 x 3.2 cm, suspicious for endometrial neoplasm.
COMPRESSOR MECHANIC recommending gynecology/oncology consult which is available at [facility].
Discussed with patient and significant other and they are agreeable for transfer to [facility] once bed available.
Patient was accepted by. Dr. Donnell Kim
Chest pain.
Possible musculoskeletal.
Chest x-ray negative.
Negative troponin.
Relieved with warm compress.
Negative EKG for acute ischemic changes
Normocytic anemia.
Continue to monitor hemoglobin
Iron level 37, total iron-binding capacity 137, iron saturation 27
Vitamin B12 level 617
CODE STATUS: Full code
DVT prophylaxis: Heparin
Diet: Renal diet
Communication: Discussed multiple times with significant other Tony Huizar at bedside and on the phone.
Disposition: Transfer to [facility] under service of Dr. Donnell Kim.
Total time spent on today's encounter was 55 minutes which included time spent in counseling the patient/family regarding diagnosis and treatment plan as listed above, goals of care, and symptom management. Case was discussed with nursing staff,
specialists, and care coordinators/case management. All labs and imaging personally reviewed by me. Remainder the time spent in detailed review of previous records, lab data, imaging, and other medical provider documentation.
Part of this note was created using voice recognition system. Occasional wrong word or �sound alike� substitutions may have inadvertently occurred due to the inherent limitations of voice recognition software. If noted kindly bring it to my
attention for correction.
Anticipated Discharge: Today
Subjective/Interval History
-
Date of Service: October 06, 2025
Patient seen and examined at bedside, improved musculoskeletal chest pain or shortness of breath, no abdominal pain, no nausea, no vomiting, no diarrhea or constipation.
Objective Data
-
Labs:
Laboratory Results
10/06/25
08:04
WBC 13.5 H
Hgb 9.2 L
Hct 28.3 L
Plt Count 336
Sodium 135
Potassium 3.4 L
Chloride 104
Carbon Dioxide 23
BUN 51 H
Creatinine 2.7 H
Glucose 100 H
Calcium 8.0 L
Vital Signs:
Vital Signs
Temp Pulse Resp BP Pulse Ox
97.7 F 78 18 156/70 97
10/06/25 11:50 10/06/25 11:50 10/06/25 11:50 10/06/25 11:50 10/06/25 11:50
I&O
10/05/25 10/06/25 10/07/25
06:59 06:59 06:59
Intake Total 510 / 510 1080 / 1080
Output Total 1325 / 1325 3540 / 3540 775 / 775
Balance -815 / -815 -2460 / -2460 -775 / -775
Physical Exam
-
General: Well Developed, Well Nourished, No Apparent Distress and Comfortable
HEENT: Normocephalic, Atraumatic, Moist Mucous Membranes, No Ptosis, PERRLA and Nose Appears Normal
Respiratory: Clear to Auscultation and Non Labored Respirations
Cardiac: Regular Rhythm, S1/S2 and Other (Tender right lower rib cage)
Breast: Deferred by me
GI: Soft, Nontender, Nondistended and Normal Bowel Sounds
Genito-urinary: No Costovertebral Tender
Musculoskeletal: No Clubbing, No Cyanosis and No Edema
Skin: Warm
Neuro: Awake, Alert, Oriented, AO x 3 and No Motor Deficits
Psych: Calm
[2025-10-06 14:41] VITALS: BP 147/75
--- NOTE | 2025-10-06 15:22 | W.DCSUMMARY ---
Discharge Summary
Discharge Data
Date of Admission: 10/03/25
Date of Discharge: 10/06/25
Total time spent discharging patient (in min): 40
-
Pending Results: No
Hospital Course
Hospital course
This is a 70-year-old female with a past medical history of rheumatoid arthritis and osteoarthritis status post right total knee arthroplasty who presented to the emergency department after abnormal outpatient labs. She reports a history of
rheumatoid arthritis previously managed with methotrexate for about two years, which she discontinued approximately three months ago. Over the past two weeks, she has experienced worsening nausea and poor oral intake, occasionally spitting up thick
whitish phlegm but generally able to keep most food down. She denies fever, chills, diarrhea, abdominal pain, flank pain, urinary symptoms, or changes in urine output. She was seen in the ED a few weeks ago for an acute rise in creatinine to 3.5 and
subsequently followed up with her primary physician, who noted elevated inflammatory markers, rheumatoid factor, cyclic citrulline peptide, and historically elevated JAIRON titers. Today, outpatient labs revealed a creatinine of 7.5 and BUN of 88,
prompting ED referral. On arrival, she was hypertensive to 200/93 with a pulse of 112 and oxygen saturation of 99% on room air. ECG showed sinus tachycardia at 117 bpm. Chest X-ray demonstrated a small left pleural effusion with adjacent atelectasis
and a mildly enlarged cardiac silhouette suggestive of a small pericardial effusion. CT abdomen/pelvis without IV contrast is pending. Additional labs revealed WBC 20.5, hemoglobin 9.7, platelets 408, stable electrolytes except for bicarbonate of
15, and an ESR of 145.
Admitted initially to the ICU, for nicardipine drip, IR consult for percutaneous nephrostomy tube, GASOLINE PUMP INSTALLER consulted for pelvis mass.
IR status post nephrostomy tube.
Seen by gynecology recommended transfer to [facility] to be seen by YARD OPERATOR/oncology
Patient accepted by Dr. Donnell Kim at [facility].
During hospitalization patient was treated from the following
Acute Renal Failure
Likely secondary to bilateral hydronephrosis caused by soft tissue mass originating from uterus or cervix, concerning for endometrial cancer.
70-year-old with history of rheumatoid arthritis (off methotrexate since May) presented with abnormal outpatient labs: creatinine 7.5 (prior 3.5 in August), BUN 83, bicarb 15. Electrolytes otherwise stable.
Clinical presentation: nausea, poor oral intake, uncontrolled hypertension, volume overload without hypoxia. ECG unremarkable.
Labs: WBC 20.5, Hgb 9.7, Plt 408.
CT: Bilateral hydronephrosis likely due to soft tissue mass in lower uterine segment invading posterior bladder wall, obstructing distal ureters at ureterovesicular junction. Leading consideration: cervical or endometrial carcinoma.Plan:
patient Admitted to ICU for BP control; started on nicardipine
Kept NPO for procedures and will start renal diet
Urology/nephrology consulted.
IR consulted S/P Percutaneous nephrostomy tube.
Leukocytosis, urine and blood cultures negative so far, discontinue Rocephin.
Hypertensive urgency
Patient admitted to the ICU and started in Cardene drip.
Blood pressure improved
Downgrade to telemetry
Started Toprol-XL
Nonsustained V. tach.
Keep potassium above 4 and magnesium of 2
Cardiology consulted.
Started on low-dose Toprol XL
Echo shows:
1. Normal biventricular size and systolic function without regional wall motion abnormality. LVEF 58%.
2. No significant valvular disease.
3. Small circumferential pericardial effusion.
4. No prior study available for comparison.
Sepsis with acute organ dysfunction secondary to UTI.
Organ dysfunction in form of acute renal failure/coagulopathy.
Continue Rocephin, pending urine and blood cultures
Pelvic Mass (non-contrast CT concerning for endometrial/cervical cancer)
Gynecology consulted
Transvaginal ultrasound shows Solid heterogeneous mass arising from the anterior lower uterine segment measures 3.1 x 3.5 x 3.2 cm, suspicious for endometrial neoplasm.
YARD OPERATOR recommending gynecology/oncology consult which is available at [facility].Discussed with patient and significant other and they are agreeable for transfer to [facility] once bed available.
Patient was accepted by. Dr. Donnell Kim
Chest pain.
Possible musculoskeletal.
Chest x-ray negative.
Negative troponin.
Relieved with warm compress.
Negative EKG for acute ischemic changes
Normocytic anemia.
Continue to monitor hemoglobin
Iron level 37, total iron-binding capacity 137, iron saturation 27
Vitamin B12 level 617
CODE STATUS: Full code
DVT prophylaxis: Heparin
Diet: Renal diet
Communication: Discussed multiple times with significant other Tony Huizar at bedside and on the phone.
Disposition: Transfer to [facility] under service of Dr. Donnell Kim.
Total time spent on today's encounter was 40 minutes which included time spent in counseling the patient/family regarding diagnosis and treatment plan as listed above, goals of care, and symptom management. Case was discussed with nursing staff,
specialists, and care coordinators/case management. All labs and imaging personally reviewed by me. Remainder the time spent in detailed review of previous records, lab data, imaging, and other medical provider documentation.
Anticipated Discharge: Today
Discharge Plan
-
Patient Disposition: Acute Care Hospital
Discharge Orders:
Discharge Patient (As Directed); Ordered 10/06/25
Ordered By: Ernestina Patterson
Discharge Date and Time
Print Language: GUATEMALAN
[2025-10-06 19:27] VITALS: BP 158/76
--- NOTE | 2025-10-06 21:23 | PTCARENOTE ---
Pt. was discharged to [facility], report given to transport.
[2025-10-07 06:29] LABS: Serine Protease-3, IgG 3 AU/mL (0-19)
[2025-10-09 07:24] LABS: ANA Pattern Speckled; ANA Titer 1:80; ANA, HEp-2, IgG Detected (<1:80)
== END 2025-10-07 00:50 | disposition short-term general hospital (02) | DRG 872 ==
LOC: 4 WEST ACU 20:47
PROVIDERS: Nurse Practitioner Primary Care; Radiology Vascular & Interventional Radiology; ADMITTING PHYSICIAN Internal Medicine; ATTENDING PHYSICIAN General Practice; EMERGENCY PHYSICIAN Emergency Medicine; FAMILY PHYSICIAN Internal Medicine; OTHER PHYSICIAN Internal Medicine; OTHER PHYSICIAN Obstetrics & Gynecology; OTHER PHYSICIAN Student in an Organized Health Care Education/Training Program
PROC: 0T9130Z Drainage of Left Kidney with Drainage Device, Percutaneous Approach (ICD-10-PCS; 2025-10-04)
DX: A41.9 Sepsis, unspecified organism (principal); N17.9 Acute kidney failure, unspecified; I47.20 Ventricular tachycardia, unspecified; J90 Pleural effusion, not elsewhere classified; J98.11 Atelectasis; I16.1 Hypertensive emergency; N13.6 Pyonephrosis; R65.20 Severe sepsis without septic shock; M06.9 Rheumatoid arthritis, unspecified; I10 Essential (primary) hypertension; R19.00 Intra-abdominal and pelvic swelling, mass and lump, unspecified site
CPT/HCPCS: 36415; 50432; 51798; 71045; 74176; 76830; 76856; 80048; 80053; 81003; 81015; 82570; 82607; 82962; 83516; 83540; 83550; 83735; 83880; 84100; 84156; 84300; 84484; 85025; 85027; 85379; 85610; 85652; 85730; 86038; 86039; 86063; 86160; 86430; 86431; 87086; 87502; 87811; 93005; 93306; 96365; 96366; 96375; 99152; 99153; 99291; C1729; C1769; G0123; J7030